=== PATIENT | female | born 1965 | race Caucasian/White ===

== ENCOUNTER 2016-05-22 12:50 | Inpatient (IN) | payer MEDICARE ==
[~2016-05-22] VITALS: Ht 152.4 cm; Wt 68.0 kg
[~2016-05-22 12:50] MED LIST: ATROVENT INH S2.5 ML INH; CEFDINIR300 MG PO; DALIRESP 500500 MCG PO; DOXYCYCLINE HY100 M2 PO; FLUOXETINE HCL20 MG PO; IPRAT-ALBUT 0.5-3 ML INH; LAMICTAL TAB 1100 MG PO; LITHIUM CARBON150 MG PO; LITHIUM CARBON450 MG PO; MEDROL DOSEPAK 24 MG PO; MUCINEX600 MG PO; NEURONTIN 300300 MG PO; NORCO 7.5-3251 EACH PO; OLANZAPINE10 MG PO; PERFOROMIS20 MCG/2 M INH; PREDNISONE10 MG PO; PULMICORT0.25 MG/2 INH; QUETIAPINE FUM300 MG PO; SPIRIVA HANDIH18 MCG INH; SYMBICORT 160-1 INHA INH; THEOCHRON300 MG PO; WELLBUTRIN 75 M75 MG PO; WELLBUTRIN SR100 MG PO
[2016-05-22 13:13] LABS: HEMOGLOBIN 12.4 gm/dl (12.3-15.3); RED BLOOD COUNT 4.59 M/UL (4.00-5.10); WHITE BLOOD COUNT 17.1 K/UL (4.5-11.0)
[2016-05-22 13:36] LABS: BUN/CREATININE RATIO 12 (0-10)
[2016-05-24 05:32] LABS: HEMOGLOBIN 10.7 gm/dl (12.3-15.3)
[2016-05-24 06:09] LABS: BUN/CREATININE RATIO 15 (0-10)
[2016-05-25] MEDS ORDERED: MEDROL DOSEPAK 24 MG PO (16:09)
[2016-05-25] MEDS ORDERED: DOXYCYCLINE HY100 MG PO (20:12)
== END 2016-05-25 16:30 | disposition home or self-care (01) | DRG 189 ==
LOC: ER1 12:50 → PROG CARE 17:22 → ZEROF 17:22 → PROG CARE 05-23 14:48
PROVIDERS: Student in an Organized Health Care Education/Training Program; ADMIT Internal Medicine
PROC: 5A09457 Assistance with Respiratory Ventilation, 24-96 Consecutive Hours, Continuous Positive Airway Pressure (ICD-10-PCS; principal; 2016-05-25)
DX: J96.22 Acute and chronic respiratory failure with hypercapnia (principal); J44.0 Chronic obstructive pulmonary disease with (acute) lower respiratory infection; J44.1 Chronic obstructive pulmonary disease with (acute) exacerbation; I50.30 Unspecified diastolic (congestive) heart failure; E66.2 Morbid (severe) obesity with alveolar hypoventilation; J96.21 Acute and chronic respiratory failure with hypoxia; J20.9 Acute bronchitis, unspecified; D75.89 Other specified diseases of blood and blood-forming organs; F31.9 Bipolar disorder, unspecified; D72.829 Elevated white blood cell count, unspecified; Z99.81 Dependence on supplemental oxygen; M81.0 Age-related osteoporosis without current pathological fracture; Z98.890 Other specified postprocedural states; Z90.710 Acquired absence of both cervix and uterus; Z80.9 Family history of malignant neoplasm, unspecified; Z87.891 Personal history of nicotine dependence; Z79.899 Other long term (current) drug therapy; Z68.29 Body mass index [BMI] 29.0-29.9, adult; Z66 Do not resuscitate
CPT/HCPCS: 36415; 36600; 71010; 80048; 80053; 80178; 82550; 82553; 82803; 83605; 83874; 84484; 85025; 85027; 87040; 87070; 87205; 93005; 94640; 94660; 94664; 94760; 96372; 96374; 96375; 96376; 99291; J1650; J1956; J2920; J2930; J3475; J7050; J7509

== ENCOUNTER 2016-07-16 16:01 | Emergency (ER) | payer OTHER ==
[~2016-07-16 16:01] MED LIST changes: +DOXYCYCLINE HY100 MG PO
== END 2016-07-16 19:31 | disposition home or self-care (01) ==
LOC: ER1 16:01
DX: S00.81XA Abrasion of other part of head, initial encounter (principal); M54.2 Cervicalgia; J44.9 Chronic obstructive pulmonary disease, unspecified; Z99.81 Dependence on supplemental oxygen; W06.XXXA Fall from bed, initial encounter; Y92.009 Unspecified place in unspecified non-institutional (private) residence as the place of occurrence of the external cause; Z23 Encounter for immunization
CPT/HCPCS: 70450; 72125; 73502; 90471; 90714; 99284; Q0162